=== PATIENT | male | born 1990 | race Caucasian/White ===

== ENCOUNTER → 2020-04-21 | Outpatient (CLI) | payer OTHER | LOC: EDBD 07:42 → M.LAB 07:42 | PROVIDERS: ATTEND Internal Medicine Cardiovascular Disease | DX: U07.1 COVID-19 (principal) ==

== ENCOUNTER 2020-05-08 16:22 | Emergency (ER) | payer OTHER ==
[~2020-05-08] VITALS: Ht 172.7 cm; Wt 79.8 kg
[2020-05-08 18:20] VITALS: BP 128/79
== END 2020-05-08 18:21 | disposition home or self-care (01) ==
LOC: M.ERS 16:22
DX: J06.9 Acute upper respiratory infection, unspecified (principal); Z20.828 Contact with and (suspected) exposure to other viral communicable diseases